=== PATIENT | male | born 1960 | race Asian ===

== ENCOUNTER → 2023-11-02 | Outpatient (BNVA) | payer MEDICARE, MEDICAID, SELFPAY | END | disposition home or self-care (01) | PROVIDERS: PCP Family Medicine; Referring Provider Family Medicine; Visit Provider Urology | DX: Z53.9 Procedure and treatment not carried out, unspecified reason (principal) ==

== ENCOUNTER → 2024-08-22 | Outpatient (BNVA) | payer MEDICARE, MEDICAID, SELFPAY | END | disposition home or self-care (01) | PROVIDERS: PCP Family Medicine; Referring Provider Family Medicine; Visit Provider Urology | DX: N40.1 Benign prostatic hyperplasia with lower urinary tract symptoms (principal); N13.8 Other obstructive and reflux uropathy; I12.9 Hypertensive chronic kidney disease with stage 1 through stage 4 chronic kidney disease, or unspecified chronic kidney disease; N18.30 Chronic kidney disease, stage 3 unspecified; Z87.442 Personal history of urinary calculi; Z90.5 Acquired absence of kidney; E66.9 Obesity, unspecified; Z68.29 Body mass index [BMI] 29.0-29.9, adult; K86.9 Disease of pancreas, unspecified | CPT/HCPCS: 99212; G0463 ==

== ENCOUNTER → 2024-08-31 | Outpatient (CLI) | payer MEDICARE, MEDICAID, SELFPAY ==
[2024-08-31 09:19] LABS: Prostate Specific Antigen 1.11 ng/mL (0-4.00)
== END | disposition home or self-care (01) ==
LOC: COPL 07:50
PROVIDERS: PCP Family Medicine; Referring Provider Urology; Visit Provider Urology
DX: N40.1 Benign prostatic hyperplasia with lower urinary tract symptoms (principal)
CPT/HCPCS: 36415; 84153

== ENCOUNTER → 2024-09-27 | Outpatient (CLI) | payer MEDICARE, MEDICAID, SELFPAY ==
[2024-09-27 08:29] LABS: Basophils % (Auto) 0 % (0-2.5); Eosinophils # (Auto) 0.1 Thou/mm3 (0.0-0.5); Eosinophils % (Auto) 2 % (0-10); Hematocrit 47.5 % (41.0-53.0); Hemoglobin 15.5 g/dL (13.5-16.0); Immature Granulocytes % (Auto) 0 % (0-0); Immature Granulocytes Auto 0.03 Thou/mm3 (0.00-0.00); Lymphocytes # (Auto) 1.5 Thou/mm3 (1.0-4.8); Lymphocytes % (Auto) 21 % (10-50); Mean Corpuscular HGB Conc 32.6 g/dl (31.0-37.0); Mean Corpuscular Hemoglobin 29.1 pg (25.0-35.0); Mean Corpuscular Volume 89 fL (80-100); Monocytes # (Auto) 0.5 Thou/mm3 (0.0-0.8); Monocytes % (Auto) 7 % (0-12); Neutrophils % (Auto) 70 % (37-80); Nucleated Red Blood Cell % 0 /100 WBC (0); Platelet Count 135 Thou/mm3 (140-440); RDW Standard Deviation 45.6 fL (35.1-43.9); Red Blood Count 5.32 Miln/mm3 (4.50-5.90); White Blood Count 7.1 Thou/mm3 (3.8-10.6)
[2024-09-27 08:43] LABS: Glucose Estimated Average 120 mg/dL (80-131); Hemoglobin A1C 5.8 % Hgb (4.8-6.0)
[2024-09-27 08:51] LABS: Alanine Aminotransferase 31 U/L (10-49); Albumin, Serum 4.7 gm/dL (3.4-4.8); Albumin/Globulin Ratio 1.6 (1.2-2.2); Alkaline Phosphatase 75 U/L (46-116); Anion Gap 7 (7-16); Aspartate Amino Transferase 16 U/L (0-34); BUN/Creatinine Ratio 19 Ratio (12-20); Blood Urea Nitrogen 39 mg/dL (9-23); Calcium 9.7 mg/dL (8.3-10.6); Calcium (Corrected) 9.7 mg/dL (8.5-10.1); Cardiac Risk Estimate 4.6 RATIO (4.0-6.7); Chloride 111 mMol/L (98-107); Cholesterol 209 mg/dL (132-200); Creatinine (Component) 2.1 mg/dL (0.6-1.3); Globulin 2.9 gm/dL (2.3-3.5); Glucose 90 mg/dL (74-106); HDL Cholesterol 45 mg/dL (40-60); LDL Cholesterol,Calculated 131 mg/dL (0-130); Osmolality,Calculated 296 (275-295); Potassium 4.8 mMol/L (3.4-5.1); Sodium 144 mMol/L (136-145); Thyroid Stimulating Hormone 1.53 uIU/mL (0.55-4.78); Total Protein 7.6 gm/dL (5.7-8.2); Triglycerides 163 mg/dL (30-150); Vitamin B12 522 pg/mL (211-911); eGFR 35 See Note
[2024-09-27 08:58] LABS: Collection Type, Urine Clean Catch; Squamous Epithelial Cell,Urine 0 /hpf (0-5)
[2024-09-27 09:24] LABS: Creatinine MALB Rnd Ur 62 mg/dL (30-125); Microalbumin Creat Ratio 613 mg/gCrea (<30); Microalbumin, Random Urine > 380 mg/L (0-300)
[2024-09-27 09:29] LABS: Bacteria,Urine Rare; Bilirubin,Urine Negative (Negative); Blood,Urine Trace (Negative); Clarity,Urine Clear (Clear/Hazy); Color,Urine Colorless (Lt Yel-Yel); Glucose, Urine Negative (Negative); Ketones,Urine Negative (Negative); Leukocyte Esterase,Urine Negative (Negative); Nitrite,Urine Negative (Negative); Protein,Urine 1+ (Neg - Trace); RBC,Urine 16 /hpf (0-3); Specific Gravity,Urine 1.015 (1.001-1.035); Urobilinogen,Urine Negative mg/dL (0.0-1.0); WBC,Urine < 1 /hpf (0-5)
== END | disposition home or self-care (01) ==
LOC: COPL 07:51
PROVIDERS: PCP Family Medicine; Referring Provider Internal Medicine; Visit Provider Internal Medicine
DX: I12.9 Hypertensive chronic kidney disease with stage 1 through stage 4 chronic kidney disease, or unspecified chronic kidney disease (principal); N18.30 Chronic kidney disease, stage 3 unspecified; E78.5 Hyperlipidemia, unspecified; D51.9 Vitamin B12 deficiency anemia, unspecified; E55.9 Vitamin D deficiency, unspecified
CPT/HCPCS: 36415; 80053; 80061; 81001; 82043; 82306; 82570; 82607; 83036; 84443; 84550; 85025

== ENCOUNTER → 2024-10-12 | Outpatient (CLI) | payer MEDICARE, MEDICAID, SELFPAY ==
--- NOTE | 2024-10-12 08:30 | XR_ITS ---
Examination: MRI abdomen, without contrast Date and time of exam: June 21 0849 hours INDICATIONS: CT abdomen pelvis February 17, 2024 prominent pancreatic head Technique: Multiple axial sagittal and coronal images of the abdomen have been obtained with the Siemens high-resolution 1.5 [employer]iana MRI scanner. Images obtained include T2-weighted fat-suppressed sagittal sections, TR 3500, TE 46, T2 weighted coronal fat suppressed images, TR 3050, TE 84, T2-weighted transverse fat suppressed images, TR 3260, TE 63, proton density transverse images, TR 4720 TE 46, and T1 weighted coronal images, TR 560, TE 13. Findings: 5.3 cm liver cyst Absent gallbladder Common hepatic duct 6 mm common bile duct 4 mm No common hepatic or common bile duct stones Enlarged pancreatic head 4 cm Pancreatic duct is not dilated Right renal cysts, the largest 5.2 cm No ascites IMPRESSION: Enlarged pancreatic head 4 cm Recommend 3 month follow-up CT abdomen pelvis post intravenous contrast
== END | disposition home or self-care (01) ==
LOC: SMRI 07:56
PROVIDERS: PCP Family Medicine; Referring Provider Family Medicine; Visit Provider Family Medicine
DX: K86.89 Other specified diseases of pancreas (principal)
CPT/HCPCS: 74181

== ENCOUNTER → 2024-10-23 | Outpatient (CLI) | payer MEDICARE, MEDICAID, SELFPAY ==
[2024-10-23 11:21] LABS: Misc Send Out* See Sep Rpt
[2024-10-23 12:05] LABS: Alanine Aminotransferase 43 U/L (10-49); Albumin, Serum 4.5 gm/dL (3.4-4.8); Albumin/Globulin Ratio 1.8 (1.2-2.2); Alkaline Phosphatase 67 U/L (46-116); Anion Gap 9 (7-16); Aspartate Amino Transferase 19 U/L (0-34); BUN/Creatinine Ratio 23 Ratio (12-20); Bilirubin,Total 0.7 mg/dL (0.3-1.2); Blood Urea Nitrogen 51 mg/dL (9-23); C-Reactive Protein < 0.5 mg/dL (0.0-0.9); Calcium 9.3 mg/dL (8.3-10.6); Calcium (Corrected) 9.3 mg/dL (8.5-10.1); Carbon Dioxide 23.5 mMol/L (20.0-31.0); Chloride 114 mMol/L (98-107); Creatinine (Component) 2.2 mg/dL (0.6-1.3); Globulin 2.5 gm/dL (2.3-3.5); Glucose 82 mg/dL (74-106); Osmolality,Calculated 303 (275-295); Sodium 146 mMol/L (136-145); eGFR 33 See Note
[2024-10-23 12:32] LABS: Sed Rate (ESR) 14 mm/hr (0-20)
== END | disposition home or self-care (01) ==
PROVIDERS: PCP Family Medicine; Referring Provider Internal Medicine; Visit Provider Internal Medicine
DX: M1A.00X0 Idiopathic chronic gout, unspecified site, without tophus (tophi) (principal); M1A.3790 Chronic gout due to renal impairment, unspecified ankle and foot, without tophus (tophi); N18.32 Chronic kidney disease, stage 3b; N20.0 Calculus of kidney; Z68.30 Body mass index [BMI] 30.0-30.9, adult; Z90.5 Acquired absence of kidney
CPT/HCPCS: 36415; 80053; 85652; 86140

== ENCOUNTER → 2024-11-06 | Outpatient (CLI) | payer MEDICARE, MEDICAID, SELFPAY ==
[2024-11-06 09:54] LABS: Alanine Aminotransferase 75 U/L (10-49); Albumin, Serum 4.6 gm/dL (3.4-4.8); Albumin/Globulin Ratio 1.7 (1.2-2.2); Alkaline Phosphatase 65 U/L (46-116); Anion Gap 13 (7-16); Aspartate Amino Transferase 23 U/L (0-34); BUN/Creatinine Ratio 21 Ratio (12-20); Bilirubin,Total 1.3 mg/dL (0.3-1.2); Blood Urea Nitrogen 44 mg/dL (9-23); Calcium 9.3 mg/dL (8.3-10.6); Calcium (Corrected) 9.3 mg/dL (8.5-10.1); Carbon Dioxide 22.9 mMol/L (20.0-31.0); Chloride 109 mMol/L (98-107); Creatinine (Component) 2.1 mg/dL (0.6-1.3); Globulin 2.7 gm/dL (2.3-3.5); Glucose 99 mg/dL (74-106); Osmolality,Calculated 299 (275-295); Potassium 4.2 mMol/L (3.4-5.1); Sodium 145 mMol/L (136-145); Total Protein 7.3 gm/dL (5.7-8.2); Uric Acid < 0.5 mg/dL (3.7-9.2); eGFR 35 See Note
== END | disposition home or self-care (01) ==
LOC: COPL 08:41
PROVIDERS: PCP Family Medicine; Referring Provider Nurse Practitioner Family; Visit Provider Nurse Practitioner Family
DX: M1A.3790 Chronic gout due to renal impairment, unspecified ankle and foot, without tophus (tophi) (principal)
CPT/HCPCS: 36415; 80053; 84550

== ENCOUNTER → 2024-11-22 | Outpatient (CLI) | payer MEDICARE, MEDICAID, SELFPAY ==
[2024-11-22 08:54] LABS: Alanine Aminotransferase 47 U/L (10-49); Albumin, Serum 4.5 gm/dL (3.4-4.8); Alkaline Phosphatase 59 U/L (46-116); Anion Gap 12 (7-16); Aspartate Amino Transferase 20 U/L (0-34); BUN/Creatinine Ratio 20 Ratio (12-20); Bilirubin,Total 0.9 mg/dL (0.3-1.2); Blood Urea Nitrogen 47 mg/dL (9-23); Calcium 9.5 mg/dL (8.3-10.6); Calcium (Corrected) 9.5 mg/dL (8.5-10.1); Carbon Dioxide 24.6 mMol/L (20.0-31.0); Chloride 110 mMol/L (98-107); Creatinine (Component) 2.3 mg/dL (0.6-1.3); Globulin 2.2 gm/dL (2.3-3.5); Glucose 113 mg/dL (74-106); Osmolality,Calculated 305 (275-295); Potassium 4.7 mMol/L (3.4-5.1); Sodium 147 mMol/L (136-145); Total Protein 6.7 gm/dL (5.7-8.2); Uric Acid < 0.5 mg/dL (3.7-9.2); eGFR 31 See Note
== END | disposition home or self-care (01) ==
LOC: COPL 06:54
PROVIDERS: PCP Family Medicine
DX: M1A.00X0 Idiopathic chronic gout, unspecified site, without tophus (tophi) (principal); M1A.3790 Chronic gout due to renal impairment, unspecified ankle and foot, without tophus (tophi); N18.31 Chronic kidney disease, stage 3a; Z90.5 Acquired absence of kidney
CPT/HCPCS: 36415; 80053; 84550

== ENCOUNTER → 2024-12-05 | Outpatient (CLI) | payer MEDICARE, MEDICAID, SELFPAY ==
[2024-12-05 09:51] LABS: Alanine Aminotransferase 38 U/L (10-49); Albumin, Serum 4.4 gm/dL (3.4-4.8); Anion Gap 11 (7-16); BUN/Creatinine Ratio 20 Ratio (12-20); Bilirubin,Total 1.2 mg/dL (0.3-1.2); Blood Urea Nitrogen 39 mg/dL (9-23); Calcium 10.1 mg/dL (8.3-10.6); Carbon Dioxide 27.7 mMol/L (20.0-31.0); Chloride 108 mMol/L (98-107); Glucose 99 mg/dL (74-106); Osmolality,Calculated 301 (275-295); Potassium 4.6 mMol/L (3.4-5.1); Sodium 147 mMol/L (136-145); Total Protein 6.7 gm/dL (5.7-8.2); Uric Acid < 0.5 mg/dL (3.7-9.2); eGFR 37 See Note
[2024-12-05 09:52] LABS: Albumin/Globulin Ratio 1.9 (1.2-2.2); Alkaline Phosphatase 57 U/L (46-116); Calcium (Corrected) 10.1 mg/dL (8.5-10.1); Globulin 2.3 gm/dL (2.3-3.5)
== END | disposition home or self-care (01) ==
LOC: COPL 08:07
PROVIDERS: PCP Family Medicine
DX: M1A.00X0 Idiopathic chronic gout, unspecified site, without tophus (tophi) (principal); M1A.3790 Chronic gout due to renal impairment, unspecified ankle and foot, without tophus (tophi); N20.0 Calculus of kidney; Z90.5 Acquired absence of kidney
CPT/HCPCS: 36415; 80053; 84550

== ENCOUNTER → 2024-12-19 | Outpatient (CLI) | payer MEDICARE, MEDICAID, SELFPAY ==
[2024-12-19 09:20] LABS: Alanine Aminotransferase 41 U/L (10-49); Albumin, Serum 4.5 gm/dL (3.4-4.8); Alkaline Phosphatase 59 U/L (46-116); Anion Gap 12 (7-16); Aspartate Amino Transferase 16 U/L (0-34); BUN/Creatinine Ratio 20 Ratio (12-20); Bilirubin,Total 0.9 mg/dL (0.3-1.2); Blood Urea Nitrogen 39 mg/dL (9-23); Calcium 9.7 mg/dL (8.3-10.6); Calcium (Corrected) 9.7 mg/dL (8.5-10.1); Carbon Dioxide 25.1 mMol/L (20.0-31.0); Chloride 109 mMol/L (98-107); Globulin 2.3 gm/dL (2.3-3.5); Glucose 103 mg/dL (74-106); Osmolality,Calculated 299 (275-295); Potassium 4.4 mMol/L (3.4-5.1); Sodium 146 mMol/L (136-145); Total Protein 6.8 gm/dL (5.7-8.2); Uric Acid < 0.5 mg/dL (3.7-9.2); eGFR 37 See Note
== END | disposition home or self-care (01) ==
LOC: COPL 07:10
PROVIDERS: PCP Family Medicine; Referring Provider Nurse Practitioner Family; Visit Provider Nurse Practitioner Family
DX: M1A.00X0 Idiopathic chronic gout, unspecified site, without tophus (tophi) (principal); M1A.3790 Chronic gout due to renal impairment, unspecified ankle and foot, without tophus (tophi)
CPT/HCPCS: 36415; 80053; 84550

== ENCOUNTER → 2024-12-28 | Outpatient (CLI) | payer MEDICARE, MEDICAID, SELFPAY ==
[2024-12-28 09:11] LABS: Basophils # (Auto) 0.0 Thou/mm3 (0.0-0.2); Basophils % (Auto) 0 % (0-2.5); Eosinophils # (Auto) 0.1 Thou/mm3 (0.0-0.5); Eosinophils % (Auto) 1 % (0-10); Hematocrit 47.7 % (41.0-53.0); Hemoglobin 15.6 g/dL (13.5-16.0); Immature Granulocytes Auto 0.07 Thou/mm3 (0.00-0.00); Lymphocytes # (Auto) 1.1 Thou/mm3 (1.0-4.8); Lymphocytes % (Auto) 12 % (10-50); Mean Corpuscular HGB Conc 32.7 g/dl (31.0-37.0); Mean Corpuscular Hemoglobin 31.0 pg (25.0-35.0); Mean Corpuscular Volume 95 fL (80-100); Monocytes # (Auto) 0.5 Thou/mm3 (0.0-0.8); Monocytes % (Auto) 6 % (0-12); Neutrophils # (Auto) 7.7 Thou/mm3 (1.8-7.7); Neutrophils % (Auto) 81 % (37-80); Nucleated Red Blood Cell # 0.00 Thou/mm3 (0.00-0.00); Nucleated Red Blood Cell % 0 /100 WBC (0); Platelet Count 129 Thou/mm3 (140-440); RDW Standard Deviation 47.2 fL (35.1-43.9); Red Blood Count 5.04 Miln/mm3 (4.50-5.90); White Blood Count 9.5 Thou/mm3 (3.8-10.6)
[2024-12-28 09:33] LABS: Alanine Aminotransferase 50 U/L (10-49); Albumin, Serum 4.8 gm/dL (3.4-4.8); Albumin/Globulin Ratio 1.8 (1.2-2.2); Alkaline Phosphatase 61 U/L (46-116); Anion Gap 9 (7-16); Aspartate Amino Transferase 22 U/L (0-34); BUN/Creatinine Ratio 20 Ratio (12-20); Bilirubin,Total 1.1 mg/dL (0.3-1.2); Blood Urea Nitrogen 44 mg/dL (9-23); C-Reactive Protein < 0.5 mg/dL (0.0-0.9); Calcium 9.5 mg/dL (8.3-10.6); Calcium (Corrected) 9.5 mg/dL (8.5-10.1); Carbon Dioxide 24.1 mMol/L (20.0-31.0); Chloride 112 mMol/L (98-107); Creatinine (Component) 2.2 mg/dL (0.6-1.3); Globulin 2.6 gm/dL (2.3-3.5); Glucose 110 mg/dL (74-106); Osmolality,Calculated 300 (275-295); Phosphorous 2.9 mg/dL (2.4-5.1); Potassium 4.8 mMol/L (3.4-5.1); Sodium 145 mMol/L (136-145); Total Protein 7.4 gm/dL (5.7-8.2); Uric Acid < 0.5 mg/dL (3.7-9.2); eGFR 33 See Note
[2024-12-28 11:30] LABS: Sed Rate (ESR) 7 mm/hr (0-20)
== END | disposition home or self-care (01) ==
LOC: COPL 07:41
PROVIDERS: PCP Internal Medicine; Referring Provider Family Medicine; Visit Provider Nurse Practitioner Family
DX: M1A.00X0 Idiopathic chronic gout, unspecified site, without tophus (tophi) (principal); M1A.3790 Chronic gout due to renal impairment, unspecified ankle and foot, without tophus (tophi); I12.9 Hypertensive chronic kidney disease with stage 1 through stage 4 chronic kidney disease, or unspecified chronic kidney disease; N18.30 Chronic kidney disease, stage 3 unspecified
CPT/HCPCS: 36415; 80053; 84100; 84550; 85025; 85652; 86140

== ENCOUNTER 2025-01-02 06:45 | Day surgery (SDC) | payer MEDICARE, MEDICAID, SELFPAY ==
[2025-01-01 10:05] VITALS: BMI 28.3
[2025-01-02] VITALS (11 sets, daily range): BP systolic 139–166; BP diastolic 72–106; PULSE 77–97; RESP 15–25; TEMP 36.4–36.8; O2SAT 96–100; BMI 28.5
[2025-01-02] MEDS: SODIUM CHLORIDE 0.9% 500 ML 500 ML 100 ML IV (07:33)
[2025-01-02] MEDS: fentaNYL CIT INJ 50 mCg/ML AMP 2ML (ASD USE ONLY) IVP (07:33)
[2025-01-02] MEDS: MIDAZOLAM INJ 1 MG/ML VIAL 2 ML (ASD USE ONLY) 2 MG IVP (07:41)
[2025-01-02] MEDS: SIMETHICONE 40 MG/0.6 ML ORAL SYRINGE PO (07:43)
== END 2025-01-02 08:25 | disposition home or self-care (01) ==
PROVIDERS: PCP Family Medicine; Referring Provider Surgery; Visit Provider Surgery
PROC: 0DBE8ZX Excision of Large Intestine, Via Natural or Artificial Opening Endoscopic, Diagnostic (ICD-10-PCS; CPT 45380; principal; 2025-01-02 07:30)
DX: D12.4 Benign neoplasm of descending colon (principal); D12.7 Benign neoplasm of rectosigmoid junction; K64.1 Second degree hemorrhoids; K64.4 Residual hemorrhoidal skin tags; K57.31 Diverticulosis of large intestine without perforation or abscess with bleeding; K62.1 Rectal polyp
CPT/HCPCS: 45380; 45385; J1200; J2250; J3010; J7999; A9270

== ENCOUNTER → 2025-01-16 | Outpatient (CLI) | payer MEDICARE, MEDICAID, SELFPAY ==
[2025-01-16 09:38] LABS: Alanine Aminotransferase 31 U/L (10-49); Albumin, Serum 4.5 gm/dL (3.4-4.8); Albumin/Globulin Ratio 1.7 (1.2-2.2); Alkaline Phosphatase 62 U/L (46-116); Anion Gap 12 (7-16); Aspartate Amino Transferase 16 U/L (0-34); BUN/Creatinine Ratio 17 Ratio (12-20); Bilirubin,Total 0.9 mg/dL (0.3-1.2); Blood Urea Nitrogen 38 mg/dL (9-23); Calcium 9.8 mg/dL (8.3-10.6); Calcium (Corrected) 9.8 mg/dL (8.5-10.1); Carbon Dioxide 24.1 mMol/L (20.0-31.0); Chloride 108 mMol/L (98-107); Creatinine (Component) 2.2 mg/dL (0.6-1.3); Globulin 2.6 gm/dL (2.3-3.5); Glucose 92 mg/dL (74-106); Osmolality,Calculated 295 (275-295); Potassium 4.5 mMol/L (3.4-5.1); Sodium 144 mMol/L (136-145); Total Protein 7.1 gm/dL (5.7-8.2); Uric Acid < 0.5 mg/dL (3.7-9.2); eGFR 33 See Note
== END | disposition home or self-care (01) ==
LOC: COPL 07:29
PROVIDERS: PCP Family Medicine
DX: M1A.00X0 Idiopathic chronic gout, unspecified site, without tophus (tophi) (principal); M1A.3790 Chronic gout due to renal impairment, unspecified ankle and foot, without tophus (tophi); N20.0 Calculus of kidney; Z90.5 Acquired absence of kidney
CPT/HCPCS: 36415; 80053; 84550

== ENCOUNTER → 2025-01-30 | Outpatient (CLI) | payer MEDICARE, MEDICAID, SELFPAY ==
[2025-01-30 09:24] LABS: Alanine Aminotransferase 44 U/L (10-49); Albumin, Serum 4.7 gm/dL (3.4-4.8); Albumin/Globulin Ratio 2.0 (1.2-2.2); Alkaline Phosphatase 61 U/L (46-116); Anion Gap 14 (7-16); Aspartate Amino Transferase 18 U/L (0-34); BUN/Creatinine Ratio 19 Ratio (12-20); Bilirubin,Total 0.9 mg/dL (0.3-1.2); Blood Urea Nitrogen 35 mg/dL (9-23); Calcium 9.2 mg/dL (8.3-10.6); Calcium (Corrected) 9.2 mg/dL (8.5-10.1); Carbon Dioxide 20.8 mMol/L (20.0-31.0); Chloride 109 mMol/L (98-107); Creatinine (Component) 1.8 mg/dL (0.6-1.3); Globulin 2.3 gm/dL (2.3-3.5); Glucose 112 mg/dL (74-106); Osmolality,Calculated 295 (275-295); Potassium 4.0 mMol/L (3.4-5.1); Sodium 144 mMol/L (136-145); Total Protein 7.0 gm/dL (5.7-8.2); Uric Acid < 0.5 mg/dL (3.7-9.2); eGFR 42 See Note
== END | disposition home or self-care (01) ==
PROVIDERS: PCP Family Medicine
DX: M1A.00X0 Idiopathic chronic gout, unspecified site, without tophus (tophi) (principal); M1A.3790 Chronic gout due to renal impairment, unspecified ankle and foot, without tophus (tophi); N20.0 Calculus of kidney; Z90.5 Acquired absence of kidney
CPT/HCPCS: 36415; 80053; 84550

== ENCOUNTER → 2025-02-01 | Outpatient (CLI) | payer MEDICARE, MEDICAID, SELFPAY ==
--- NOTE | 2025-02-01 08:00 | XR_ITS ---
Examination: Abdomen sonogram, Limited Date and time of exam: February 11, 2025 0728 hours INDICATIONS: Elevated liver function tests on laboratory examination January 30, 2025, enlarged pancreatic head on MR abdomen October 12, 2024 Technique: Real-time ga scale transabdominal sonographic images of the upper abdomen obtained. Findings: Absent gallbladder Common bile duct 0.6 cm no stones Pancreatic head 3.1 cm Liver 16 cm right lobe liver cyst 5.1 cm Normal hepatopedal portal venous flow Patent IVC IMPRESSION: No common bile duct stones Pancreatic head 3.1 cm Benign right lobe liver cyst
== END | disposition home or self-care (01) ==
LOC: CDIM 07:39
PROVIDERS: PCP Family Medicine; Referring Provider Internal Medicine; Visit Provider Internal Medicine
DX: K76.89 Other specified diseases of liver (principal)
CPT/HCPCS: 76705

== ENCOUNTER → 2025-02-19 | Outpatient (CLI) | payer MEDICARE, MEDICAID, SELFPAY ==
[2025-02-19 09:48] LABS: Alanine Aminotransferase 32 U/L (10-49); Albumin, Serum 4.4 gm/dL (3.4-4.8); Albumin/Globulin Ratio 2.1 (1.2-2.2); Alkaline Phosphatase 58 U/L (46-116); Anion Gap 14 (7-16); Aspartate Amino Transferase 14 U/L (0-34); BUN/Creatinine Ratio 15 Ratio (12-20); Bilirubin,Total 0.6 mg/dL (0.3-1.2); Blood Urea Nitrogen 36 mg/dL (9-23); Calcium 10.8 mg/dL (8.3-10.6); Calcium (Corrected) 10.8 mg/dL (8.5-10.1); Carbon Dioxide 23.7 mMol/L (20.0-31.0); Chloride 110 mMol/L (98-107); Creatinine (Component) 2.4 mg/dL (0.6-1.3); Globulin 2.1 gm/dL (2.3-3.5); Glucose 101 mg/dL (74-106); Osmolality,Calculated 302 (275-295); Potassium 4.1 mMol/L (3.4-5.1); Sodium 148 mMol/L (136-145); Total Protein 6.5 gm/dL (5.7-8.2); eGFR 30 See Note
[2025-02-19 09:59] LABS: Uric Acid < 0.5 mg/dL (3.7-9.2)
== END | disposition home or self-care (01) ==
LOC: COPL 06:57
PROVIDERS: PCP Family Medicine; Referring Provider Internal Medicine; Visit Provider Internal Medicine
DX: M1A.00X0 Idiopathic chronic gout, unspecified site, without tophus (tophi) (principal); M1A.3790 Chronic gout due to renal impairment, unspecified ankle and foot, without tophus (tophi); N20.0 Calculus of kidney; Z90.5 Acquired absence of kidney
CPT/HCPCS: 36415; 80053; 84550

== ENCOUNTER → 2025-03-05 | Outpatient (CLI) | payer MEDICARE, MEDICAID, SELFPAY ==
[2025-03-05 08:14] LABS: Collection Type, Urine Clean Catch; Squamous Epithelial Cell,Urine 0 /hpf (0-5)
[2025-03-05 09:16] LABS: Alanine Aminotransferase 62 U/L (10-49); Albumin, Serum 4.4 gm/dL (3.4-4.8); Albumin/Globulin Ratio 2.0 (1.2-2.2); Alkaline Phosphatase 62 U/L (46-116); Anion Gap 10 (7-16); Aspartate Amino Transferase 22 U/L (0-34); BUN/Creatinine Ratio 23 Ratio (12-20); Bilirubin,Total 1.1 mg/dL (0.3-1.2); Blood Urea Nitrogen 45 mg/dL (9-23); Calcium 10.0 mg/dL (8.3-10.6); Calcium (Corrected) 10.0 mg/dL (8.5-10.1); Carbon Dioxide 24.7 mMol/L (20.0-31.0); Cardiac Risk Estimate 3.0 RATIO (4.0-6.7); Chloride 108 mMol/L (98-107); Cholesterol 161 mg/dL (132-200); Creatinine (Component) 2.0 mg/dL (0.6-1.3); Globulin 2.2 gm/dL (2.3-3.5); Glucose 94 mg/dL (74-106); HDL Cholesterol 54 mg/dL (40-60); LDL Cholesterol,Calculated 66 mg/dL (0-130); Osmolality,Calculated 296 (275-295); Potassium 4.9 mMol/L (3.4-5.1); Sodium 143 mMol/L (136-145); Total Protein 6.6 gm/dL (5.7-8.2); Triglycerides 206 mg/dL (30-150); Uric Acid < 0.5 mg/dL (3.7-9.2); eGFR 37 See Note
[2025-03-05 09:23] LABS: Bilirubin,Urine Negative (Negative); Blood,Urine Negative (Negative); Clarity,Urine Clear (Clear/Hazy); Color,Urine Lt-Yellow (Lt Yel-Yel); Glucose, Urine Negative (Negative); Ketones,Urine Negative (Negative); Leukocyte Esterase,Urine Negative (Negative); Nitrite,Urine Negative (Negative); PH,Urine 6.0 (5.0-7.0); Protein,Urine Negative (Neg - Trace); RBC,Urine < 1 /hpf (0-3); Specific Gravity,Urine 1.013 (1.001-1.035); Urobilinogen,Urine Negative mg/dL (0.0-1.0); WBC,Urine < 1 /hpf (0-5)
== END | disposition home or self-care (01) ==
PROVIDERS: PCP Family Medicine; Visit Provider Internal Medicine
DX: Z00.00 Encounter for general adult medical examination without abnormal findings (principal); I12.9 Hypertensive chronic kidney disease with stage 1 through stage 4 chronic kidney disease, or unspecified chronic kidney disease; N18.32 Chronic kidney disease, stage 3b; E78.5 Hyperlipidemia, unspecified; M1A.00X0 Idiopathic chronic gout, unspecified site, without tophus (tophi); M1A.3790 Chronic gout due to renal impairment, unspecified ankle and foot, without tophus (tophi); N20.0 Calculus of kidney; Z90.5 Acquired absence of kidney
CPT/HCPCS: 36415; 80053; 80061; 81001; 84550

== ENCOUNTER → 2025-03-19 | Outpatient (CLI) | payer MEDICARE, MEDICAID, SELFPAY ==
[2025-03-19 09:12] LABS: Alanine Aminotransferase 38 U/L (10-49); Albumin, Serum 4.4 gm/dL (3.4-4.8); Albumin/Globulin Ratio 2.1 (1.2-2.2); Alkaline Phosphatase 54 U/L (46-116); Anion Gap 11 (7-16); Aspartate Amino Transferase 17 U/L (0-34); BUN/Creatinine Ratio 17 Ratio (12-20); Bilirubin,Total 1.0 mg/dL (0.3-1.2); Blood Urea Nitrogen 35 mg/dL (9-23); Calcium 10.0 mg/dL (8.3-10.6); Calcium (Corrected) 10.0 mg/dL (8.5-10.1); Carbon Dioxide 22.9 mMol/L (20.0-31.0); Chloride 111 mMol/L (98-107); Creatinine (Component) 2.1 mg/dL (0.6-1.3); Globulin 2.1 gm/dL (2.3-3.5); Glucose 91 mg/dL (74-106); Osmolality,Calculated 296 (275-295); Potassium 4.0 mMol/L (3.4-5.1); Sodium 145 mMol/L (136-145); Total Protein 6.5 gm/dL (5.7-8.2); Uric Acid < 0.5 mg/dL (3.7-9.2); eGFR 35 See Note
== END | disposition home or self-care (01) ==
LOC: COPL 07:27
PROVIDERS: PCP Family Medicine
DX: M1A.00X0 Idiopathic chronic gout, unspecified site, without tophus (tophi) (principal); M1A.3790 Chronic gout due to renal impairment, unspecified ankle and foot, without tophus (tophi); N18.31 Chronic kidney disease, stage 3a; N18.32 Chronic kidney disease, stage 3b; N20.0 Calculus of kidney; Z90.5 Acquired absence of kidney
CPT/HCPCS: 36415; 80053; 84550

== ENCOUNTER → 2025-04-02 | Outpatient (CLI) | payer MEDICARE, MEDICAID, SELFPAY ==
[2025-04-02 09:07] LABS: Alanine Aminotransferase 43 U/L (10-49); Albumin, Serum 4.4 gm/dL (3.4-4.8); Albumin/Globulin Ratio 2.0 (1.2-2.2); Alkaline Phosphatase 62 U/L (46-116); Anion Gap 11 (7-16); Aspartate Amino Transferase < 10 U/L (0-34); BUN/Creatinine Ratio 18 Ratio (12-20); Bilirubin,Total 0.8 mg/dL (0.3-1.2); Blood Urea Nitrogen 35 mg/dL (9-23); Calcium 9.6 mg/dL (8.3-10.6); Calcium (Corrected) 9.6 mg/dL (8.5-10.1); Carbon Dioxide 23.4 mMol/L (20.0-31.0); Chloride 111 mMol/L (98-107); Creatinine (Component) 2.0 mg/dL (0.6-1.3); Globulin 2.2 gm/dL (2.3-3.5); Glucose 109 mg/dL (74-106); Osmolality,Calculated 297 (275-295); Potassium 4.5 mMol/L (3.4-5.1); Sodium 145 mMol/L (136-145); Total Protein 6.6 gm/dL (5.7-8.2); Uric Acid < 0.5 mg/dL (3.7-9.2); eGFR 37 See Note
== END | disposition home or self-care (01) ==
PROVIDERS: PCP Family Medicine; Referring Provider Internal Medicine; Visit Provider Internal Medicine
DX: M1A.00X0 Idiopathic chronic gout, unspecified site, without tophus (tophi) (principal); M1A.3790 Chronic gout due to renal impairment, unspecified ankle and foot, without tophus (tophi); N20.0 Calculus of kidney; Z90.5 Acquired absence of kidney
CPT/HCPCS: 36415; 80053; 84550

== ENCOUNTER → 2025-04-18 | Outpatient (CLI) | payer MEDICARE, MEDICAID, SELFPAY ==
[2025-04-18 12:07] LABS: Alanine Aminotransferase 43 U/L (10-49); Albumin, Serum 4.6 gm/dL (3.4-4.8); Albumin/Globulin Ratio 2.4 (1.2-2.2); Alkaline Phosphatase 64 U/L (46-116); Anion Gap 11 (7-16); Aspartate Amino Transferase 18 U/L (0-34); BUN/Creatinine Ratio 16 Ratio (12-20); Bilirubin,Total 1.1 mg/dL (0.3-1.2); Blood Urea Nitrogen 36 mg/dL (9-23); Calcium 9.6 mg/dL (8.3-10.6); Calcium (Corrected) 9.6 mg/dL (8.5-10.1); Carbon Dioxide 21.9 mMol/L (20.0-31.0); Chloride 111 mMol/L (98-107); Creatinine (Component) 2.2 mg/dL (0.6-1.3); Globulin 1.9 gm/dL (2.3-3.5); Glucose 112 mg/dL (74-106); Osmolality,Calculated 296 (275-295); Potassium 4.6 mMol/L (3.4-5.1); Sodium 144 mMol/L (136-145); Total Protein 6.5 gm/dL (5.7-8.2); Uric Acid < 0.5 mg/dL (3.7-9.2); eGFR 33 See Note
== END | disposition home or self-care (01) ==
LOC: COPL 11:04
PROVIDERS: PCP Family Medicine; Referring Provider Internal Medicine; Visit Provider Internal Medicine
DX: M1A.00X0 Idiopathic chronic gout, unspecified site, without tophus (tophi) (principal); M1A.3790 Chronic gout due to renal impairment, unspecified ankle and foot, without tophus (tophi); N20.0 Calculus of kidney; Z90.5 Acquired absence of kidney
CPT/HCPCS: 36415; 80053; 84550

== ENCOUNTER → 2025-04-23 | Outpatient (BNVA) | payer MEDICARE, MEDICAID, SELFPAY | END | disposition home or self-care (01) | PROVIDERS: PCP Family Medicine; Referring Provider Family Medicine; Visit Provider Urology | DX: N40.1 Benign prostatic hyperplasia with lower urinary tract symptoms (principal); N13.8 Other obstructive and reflux uropathy; I12.9 Hypertensive chronic kidney disease with stage 1 through stage 4 chronic kidney disease, or unspecified chronic kidney disease; N18.30 Chronic kidney disease, stage 3 unspecified; E66.9 Obesity, unspecified; Z68.29 Body mass index [BMI] 29.0-29.9, adult; Z90.5 Acquired absence of kidney | CPT/HCPCS: 81003; 99212; G0463 ==

== ENCOUNTER → 2025-04-30 | Outpatient (CLI) | payer MEDICARE, MEDICAID, SELFPAY ==
[2025-04-30 09:04] LABS: Alanine Aminotransferase 35 U/L (10-49); Albumin, Serum 4.4 gm/dL (3.4-4.8); Albumin/Globulin Ratio 2.2 (1.2-2.2); Alkaline Phosphatase 67 U/L (46-116); Anion Gap 12 (7-16); Aspartate Amino Transferase 20 U/L (0-34); BUN/Creatinine Ratio 16 Ratio (12-20); Bilirubin,Total 0.7 mg/dL (0.3-1.2); Blood Urea Nitrogen 30 mg/dL (9-23); Calcium 9.2 mg/dL (8.3-10.6); Calcium (Corrected) 9.2 mg/dL (8.5-10.1); Carbon Dioxide 24.3 mMol/L (20.0-31.0); Chloride 110 mMol/L (98-107); Creatinine (Component) 1.9 mg/dL (0.6-1.3); Globulin 2.0 gm/dL (2.3-3.5); Glucose 100 mg/dL (74-106); Osmolality,Calculated 296 (275-295); Potassium 4.4 mMol/L (3.4-5.1); Sodium 146 mMol/L (136-145); Total Protein 6.4 gm/dL (5.7-8.2); Uric Acid < 0.5 mg/dL (3.7-9.2); eGFR 39 See Note
== END | disposition home or self-care (01) ==
PROVIDERS: PCP Internal Medicine; Referring Provider Internal Medicine; Visit Provider Internal Medicine
DX: M1A.00X0 Idiopathic chronic gout, unspecified site, without tophus (tophi) (principal); M1A.3790 Chronic gout due to renal impairment, unspecified ankle and foot, without tophus (tophi); N20.0 Calculus of kidney; Z90.5 Acquired absence of kidney
CPT/HCPCS: 36415; 80053; 84550

== ENCOUNTER → 2025-05-14 | Outpatient (CLI) | payer MEDICARE, MEDICAID, SELFPAY ==
[2025-05-14 14:21] LABS: Basophils # (Auto) 0.0 Thou/mm3 (0.0-0.2); Basophils % (Auto) 0 % (0-2.5); Eosinophils # (Auto) 0.0 Thou/mm3 (0.0-0.5); Eosinophils % (Auto) 0 % (0-10); Hematocrit 41.8 % (41.0-53.0); Hemoglobin 13.4 g/dL (13.5-16.0); Immature Granulocytes Auto 0.07 Thou/mm3 (0.00-0.00); Lymphocytes # (Auto) 0.4 Thou/mm3 (1.0-4.8); Lymphocytes % (Auto) 3 % (10-50); Mean Corpuscular HGB Conc 32.1 g/dl (31.0-37.0); Mean Corpuscular Hemoglobin 30.3 pg (25.0-35.0); Mean Corpuscular Volume 95 fL (80-100); Monocytes # (Auto) 0.5 Thou/mm3 (0.0-0.8); Monocytes % (Auto) 4 % (0-12); Neutrophils # (Auto) 10.2 Thou/mm3 (1.8-7.7); Neutrophils % (Auto) 92 % (37-80); Nucleated Red Blood Cell # 0.00 Thou/mm3 (0.00-0.00); Nucleated Red Blood Cell % 0 /100 WBC (0); Platelet Count 152 Thou/mm3 (140-440); RDW Standard Deviation 45.6 fL (35.1-43.9); Red Blood Count 4.42 Miln/mm3 (4.50-5.90); White Blood Count 11.2 Thou/mm3 (3.8-10.6)
[2025-05-14 14:47] LABS: Alanine Aminotransferase 32 U/L (10-49); Albumin, Serum 4.6 gm/dL (3.4-4.8); Albumin/Globulin Ratio 2.4 (1.2-2.2); Alkaline Phosphatase 68 U/L (46-116); Anion Gap 13 (7-16); Aspartate Amino Transferase 22 U/L (0-34); BUN/Creatinine Ratio 12 Ratio (12-20); Bilirubin,Total 0.9 mg/dL (0.3-1.2); Blood Urea Nitrogen 25 mg/dL (9-23); Calcium 9.6 mg/dL (8.3-10.6); Calcium (Corrected) 9.6 mg/dL (8.5-10.1); Carbon Dioxide 22.0 mMol/L (20.0-31.0); Chloride 111 mMol/L (98-107); Creatinine (Component) 2.1 mg/dL (0.6-1.3); Globulin 1.9 gm/dL (2.3-3.5); Glucose 102 mg/dL (74-106); Osmolality,Calculated 294 (275-295); Potassium 4.5 mMol/L (3.4-5.1); Sodium 146 mMol/L (136-145); Total Protein 6.5 gm/dL (5.7-8.2); Uric Acid < 0.5 mg/dL (3.7-9.2); eGFR 35 See Note
== END | disposition home or self-care (01) ==
LOC: COPL 13:20
PROVIDERS: PCP Family Medicine; Referring Provider Internal Medicine; Visit Provider Internal Medicine
DX: M1A.00X0 Idiopathic chronic gout, unspecified site, without tophus (tophi) (principal); M1A.3790 Chronic gout due to renal impairment, unspecified ankle and foot, without tophus (tophi); N18.31 Chronic kidney disease, stage 3a; N18.32 Chronic kidney disease, stage 3b; N20.0 Calculus of kidney; Z90.5 Acquired absence of kidney
CPT/HCPCS: 36415; 80053; 84550; 85025

== ENCOUNTER → 2025-05-28 | Outpatient (CLI) | payer MEDICARE, MEDICAID, SELFPAY ==
[2025-05-28 09:08] LABS: Basophils # (Auto) 0.0 Thou/mm3 (0.0-0.2); Basophils % (Auto) 0 % (0-2.5); Eosinophils # (Auto) 0.3 Thou/mm3 (0.0-0.5); Eosinophils % (Auto) 4 % (0-10); Hematocrit 44.2 % (41.0-53.0); Hemoglobin 14.0 g/dL (13.5-16.0); Immature Granulocytes Auto 0.03 Thou/mm3 (0.00-0.00); Lymphocytes # (Auto) 1.0 Thou/mm3 (1.0-4.8); Lymphocytes % (Auto) 15 % (10-50); Mean Corpuscular HGB Conc 31.7 g/dl (31.0-37.0); Mean Corpuscular Hemoglobin 30.1 pg (25.0-35.0); Mean Corpuscular Volume 95 fL (80-100); Monocytes # (Auto) 0.6 Thou/mm3 (0.0-0.8); Monocytes % (Auto) 9 % (0-12); Neutrophils # (Auto) 4.8 Thou/mm3 (1.8-7.7); Neutrophils % (Auto) 71 % (37-80); Nucleated Red Blood Cell # 0.00 Thou/mm3 (0.00-0.00); Nucleated Red Blood Cell % 0 /100 WBC (0); Platelet Count 133 Thou/mm3 (140-440); RDW Standard Deviation 46.2 fL (35.1-43.9); Red Blood Count 4.65 Miln/mm3 (4.50-5.90); White Blood Count 6.7 Thou/mm3 (3.8-10.6)
[2025-05-28 09:15] LABS: Alanine Aminotransferase 28 U/L (10-49); Albumin, Serum 4.5 gm/dL (3.4-4.8); Albumin/Globulin Ratio 2.0 (1.2-2.2); Alkaline Phosphatase 76 U/L (46-116); Anion Gap 11 (7-16); Aspartate Amino Transferase 23 U/L (0-34); BUN/Creatinine Ratio 12 Ratio (12-20); Bilirubin,Total 0.7 mg/dL (0.3-1.2); Blood Urea Nitrogen 20 mg/dL (9-23); Calcium 9.3 mg/dL (8.3-10.6); Calcium (Corrected) 9.3 mg/dL (8.5-10.1); Carbon Dioxide 21.8 mMol/L (20.0-31.0); Chloride 114 mMol/L (98-107); Creatinine (Component) 1.7 mg/dL (0.6-1.3); Globulin 2.3 gm/dL (2.3-3.5); Glucose 97 mg/dL (74-106); Osmolality,Calculated 295 (275-295); Potassium 4.3 mMol/L (3.4-5.1); Sodium 147 mMol/L (136-145); Total Protein 6.8 gm/dL (5.7-8.2); Uric Acid < 0.5 mg/dL (3.7-9.2); eGFR 45 See Note
== END | disposition home or self-care (01) ==
LOC: COPL 07:50
PROVIDERS: PCP Family Medicine
DX: M1A.00X0 Idiopathic chronic gout, unspecified site, without tophus (tophi) (principal); M1A.3790 Chronic gout due to renal impairment, unspecified ankle and foot, without tophus (tophi); N20.0 Calculus of kidney; Z90.5 Acquired absence of kidney
CPT/HCPCS: 36415; 80053; 84550; 85025

== ENCOUNTER → 2025-06-07 | Outpatient (BNVA) | payer MEDICARE, MEDICAID, SELFPAY | END | disposition home or self-care (01) | PROVIDERS: PCP Family Medicine; Referring Provider Family Medicine; Visit Provider Urology | DX: N40.1 Benign prostatic hyperplasia with lower urinary tract symptoms (principal); R39.12 Poor urinary stream; I10 Essential (primary) hypertension | CPT/HCPCS: 51741; 51798 ==

== ENCOUNTER → 2025-06-11 | Outpatient (CLI) | payer MEDICARE, MEDICAID, SELFPAY ==
[2025-06-11 14:16] LABS: Alanine Aminotransferase 26 U/L (10-49); Albumin, Serum 4.7 gm/dL (3.4-4.8); Albumin/Globulin Ratio 2.0 (1.2-2.2); Alkaline Phosphatase 70 U/L (46-116); Anion Gap 13 (7-16); Aspartate Amino Transferase 20 U/L (0-34); BUN/Creatinine Ratio 16 Ratio (12-20); Bilirubin,Total 0.7 mg/dL (0.3-1.2); Blood Urea Nitrogen 36 mg/dL (9-23); Calcium 9.9 mg/dL (8.3-10.6); Calcium (Corrected) 9.9 mg/dL (8.5-10.1); Carbon Dioxide 23.5 mMol/L (20.0-31.0); Chloride 109 mMol/L (98-107); Creatinine (Component) 2.2 mg/dL (0.6-1.3); Globulin 2.3 gm/dL (2.3-3.5); Glucose 100 mg/dL (74-106); Osmolality,Calculated 297 (275-295); Potassium 4.1 mMol/L (3.4-5.1); Sodium 145 mMol/L (136-145); Total Protein 7.0 gm/dL (5.7-8.2); Uric Acid < 0.5 mg/dL (3.7-9.2); eGFR 33 See Note
== END | disposition home or self-care (01) ==
LOC: COPL 13:08
PROVIDERS: PCP Family Medicine
DX: M1A.00X0 Idiopathic chronic gout, unspecified site, without tophus (tophi) (principal); M1A.3790 Chronic gout due to renal impairment, unspecified ankle and foot, without tophus (tophi); N20.0 Calculus of kidney; Z90.5 Acquired absence of kidney
CPT/HCPCS: 36415; 80053; 84550